=== PATIENT | male | born 1965 | race Caucasian/White ===

== ENCOUNTER 2019-01-20 21:32 | Emergency (ER) | payer MEDICAID ==
[~2019-01-20] VITALS: Ht 172.7 cm; Wt 74.8 kg
--- NOTE | 2019-01-20 22:00 | NUR ---
Dr. Myers at bedside for MSE
--- NOTE | 2019-01-20 22:30 | NUR ---
[facility] at bedside
[2019-01-20] MEDS ORDERED: IBUPROFEN 800 MG TABLET ONE (22:37)
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
[2019-01-20] MEDS ORDERED: IBUPROFEN 800 MG TABLET PO ONE (22:45)
--- NOTE | 2019-01-20 23:55 | NUR ---
Patient in bed awake. Breathing even and unlabored. NAD noted
--- NOTE | 2019-01-21 01:17 | NUR ---
Patient discharged to home in stable conditon. Written and verbal after care instructions given. Patient verbalizes understanding of instructions. Patient ambulating with steady gait
[2019-01-21 01:18] VITALS: BP 128/76
== END 2019-01-21 00:48 | disposition home or self-care (01) ==
LOC: ER 21:32
DX: S13.4XXA Sprain of ligaments of cervical spine, initial encounter (principal); S33.5XXA Sprain of ligaments of lumbar spine, initial encounter; S09.90XA Unspecified injury of head, initial encounter; V49.9XXA Car occupant (driver) (passenger) injured in unspecified traffic accident, initial encounter; Y93.89 Activity, other specified; Y92.89 Other specified places as the place of occurrence of the external cause; Y99.8 Other external cause status
CPT/HCPCS: A4663